=== PATIENT | male | born 1980 | race Two or more races ===

== ENCOUNTER 2018-12-23 23:20 | Emergency (ER) | payer MEDICARE, OTHER ==
[~2018-12-23] VITALS: Ht 175.3 cm; Wt 74.8 kg
[2018-12-24 00:08] LABS: Basophils # (auto) 0 uL; Basophils % (auto) 0.2 % (0.0-2.0); Eosinophils # (auto) 0 uL; Eosinophils % (auto) 0.2 % (0.0-7.0); Hematocrit 43.6 % (41.0-53.0); Lymphocytes # (auto) 0.7 uL; Lymphocytes % (auto) 8.8 % (10.0-50.0); Mean Corpuscular Hgb Conc. 34.4 g/dL (32.0-36.0); Mean Corpuscular Volume 87.2 fL (80.0-100.0); Monocytes # (auto) 0.4 uL; Monocytes % (auto) 4.2 % (0.0-12.0); Neutrophils # (auto) 7.3 uL; Neutrophils % (auto) 86.6 % (37.0-80.0); Platelet Count (auto) 193 10^3/uL (140-450); Red Cell Distribution Width 12.6 % (11.8-14.3); White Blood Cell 8.5 10^3/uL (4.4-10.8)
[2018-12-24 00:23] LABS: INR 0.96 (0.9-1.15); Partial Thromboplastin Time 26.2 sec (23.64-32.05)
[2018-12-24 00:28] LABS: Albumin 4.6 g/dL (3.4-5.0); Anion Gap 11 (5-15); Blood Urea Nitrogen 9 mg/dL (7-18); Calcium 9.7 mg/dL (8.5-10.1); Carbon Dioxide 24 mmol/L (21-32); Chloride 104 mmol/L (98-107); Glucose 144 mg/dL (74-106); Potassium 3.6 mmol/L (3.5-5.1); Sodium 139 mmol/L (136-145)
[2018-12-24 00:31] LABS: Alanine Aminotransferase 348 U/L (16-61); Aspartate Aminotransferase 368 U/L (15-37); BUN/Creatinine Ratio 10.1; Blood Alcohol < 3.0 mg/dL (0-5); GFR African American 122 mL/min; GFR Non-African American 101 mL/min
[2018-12-24 00:35] LABS: Acetaminophen < 2.0 ug/mL (10-30); Salicylate < 0.2 mg/dL (2.8-20.0)
[2018-12-24 00:37] LABS: Alkaline Phosphatase 166 U/L (45-117); Bilirubin, Total 3.4 mg/dL (0.2-1.0); Total Protein 8.1 g/dL (6.4-8.2)
[2018-12-24 01:42] LABS: Urine Bacteria NONE SEEN /hpf (None Seen); Urine Blood Negative /uL (Negative); Urine Mucus FEW (None Seen); Urine Specific Gravity 1.029 (1.001-1.035); Urine WBC 1 /hpf (0 - 3)
[2018-12-24 02:04] LABS: Alcohol, Urine < 3.0 mg/dL (0-5); Amphetamine Screen, Urine NEGATIVE (NEGATIVE); Barbiturate Scree,Urine NEGATIVE (NEGATIVE); Benzodiazephine Screen, Urine NEGATIVE (NEGATIVE); Cannabinoid Screen, Urine NEGATIVE (NEGATIVE); Cocaine Screen, Urine NEGATIVE (NEGATIVE); Opiate Scree,Urine NEGATIVE (NEGATIVE); Phencyclidine Screen, Urine NEGATIVE (NEGATIVE)
[2018-12-24] MEDS ORDERED: OLANZapine 5 MG TAB PO ONE (02:30)
[2018-12-24] MEDS ORDERED: IBUPROFEN 800 MG TAB PO ONE (02:30)
[2018-12-24] MEDS ORDERED: SODIUM CHLORIDE 0.9% 1,000 ML IV SCH (10:07)
[2018-12-24] MEDS ORDERED: NITROGLYCERIN 0.4 MG SL TAB SL PRN (10:15)
[2018-12-24] MEDS ORDERED: MORPHINE SULF INJ 2 MG/ML SYRINGE 1ML IV PRN (10:15)
[2018-12-24] MEDS ORDERED: cefTRIAXone 1GM/50ML D5W 50 ML IV ONE (10:15)
[2018-12-24] MEDS ORDERED: LACTULOSE 20Gm/30ML SOLN PO PRN (10:15)
[2018-12-24] MEDS ORDERED: PROMETHAZINE HCL 25 MG/ML 1ML IV PRN (10:15)
[2018-12-24] MEDS ORDERED: DEXTROSE (50%) 50ML SYRG IV PRN (10:15)
[2018-12-24] MEDS ORDERED: TEMAZEPAM 15 MG CAP PO PRN (10:15)
[2018-12-24 10:30] VITALS: BP 108/75
[2018-12-24] MEDS ORDERED: LORazepam 2MG/ML-1ML VIAL IV ONE (10:30)
[2018-12-24 11:02] LABS: Amylase 74 U/L (25-115); CRP High Sensitivity 0.43 mg/dL (< 0.3); Lipase 143 U/L (73-393)
[2018-12-24] MEDS ORDERED: ACCU-CHEK COMFORT CURVE STRIP VI SCH (11:30)
[2018-12-24] MEDS ORDERED: metroNIDAZOLE 500MG/100ML 100 ML IV SCH (14:00)
[2018-12-25] MEDS ORDERED: cefTRIAXone 1GM/50ML D5W 50 ML IV SCH (09:00)
[2018-12-25] MEDS ORDERED: ENOXAPARIN SOD 40 MG/0.4 ML SYRINGE SC SCH (10:00)
[2018-12-25] MEDS ORDERED: PANTOPRAZOLE 40 MG TAB PO SCH (10:00)
== END 2018-12-24 11:02 | disposition left against medical advice (07) ==
LOC: ER 23:31 → UNDOADMIN 23:32 → TELE 23:32 → ER 12-24 10:59
DX: F23 Brief psychotic disorder (principal); F43.10 Post-traumatic stress disorder, unspecified; F32.9 Major depressive disorder, single episode, unspecified; K83.1 Obstruction of bile duct
CPT/HCPCS: 36415; 76705; 80053; 80307; 80320; 80329; 81001; 82150; 82550; 82962; 83036; 83690; 84443; 84484; 85025; 85379; 85610; 85652; 85730; 86141; 93005